=== PATIENT | male | born 1930 | race Caucasian/White ===

== ENCOUNTER 2017-10-28 23:15 | Inpatient (IN) | payer MEDICARE, OTHER ==
[~2017-10-28] VITALS: Ht 172.7 cm; Wt 81.8 kg
[~2017-10-28 23:15] MED LIST: ASPIR-LOW81 MG PO; BETA CAROTENE PO; FISH OIL1 IU PO; LIPITOR 10MG10 MG PO; LUETIN PO; TYLENOL 500MG500 MG PO; VITAMIN B 12 PO; VITAMIN C500 MG PO; VITAMIN D PO; VITAMIN E200 I1 PO
[2017-10-29 00:47] LABS: COLLECTION METHOD CLEAN CATCH
[2017-10-29 00:53] LABS: PH 5 (5-8); SQUAMOUS EPITHELIAL None Seen /hpf; URINE APPEARANCE Clear; URINE BACTERIA None Seen /hpf; URINE BILIRUBIN Negative (NEGATIVE); URINE BLOOD 2+ (NEGATIVE); URINE COLOR Yellow; URINE GLUCOSE Negative (NEGATIVE); URINE KETONE Negative (NEGATIVE); URINE LEUKOCYTE ESTERASE Negative (NEGATIVE); URINE NITRATE Negative (NEGATIVE); URINE PROTEIN(semi-quant) Negative (NEGATIVE); URINE RBC 0-2 /hpf; URINE UROBILINOGEN Negative (NEGATIVE)
[2017-10-29 01:50] LABS: HEMATOCRIT 41.9 % (42.0-52.0); HEMOGLOBIN 14.6 g/dl (13.5-18.0); MEAN CELL VOLUME 85 fl (80.0-100.0); MEAN CORPUSCULAR HEMOGLOBIN 30 pg (27.0-31.0); MEAN CORPUSCULAR HGB CONC 35 g/dl (33.0-37.0); PLATELET COUNT 204 K/mm3 (130-400); RED BLOOD COUNT 4.94 M/mm3 (4.20-5.60); REDCELL DISTRIBUTION WIDTH-CV 13.7 % (11.5-14.5)
[2017-10-29 02:09] LABS: ALANINE AMINOTRANSFERASE 27 U/L (21-72); ALBUMIN 3.7 gm/dL (3.5-5.0); ALKALINE PHOSPHATASE 97 U/L (50-136); ANION GAP 10 mmol/L (7-16); AST,SGOT 21 U/L (15-37); BILIRUBIN,TOTAL 0.5 mg/dL (0.0-1.0); BLOOD UREA NITROGEN 26 mg/dL (9-20); C-REACTIVE PROTEIN 4.1 mg/dL (0.0-0.9); CALCIUM 8.7 mg/dL (8.4-10.2); CARBON DIOXIDE 23 mmol/L (22-30); CHLORIDE 105 mmol/L (98-107); CREATININE, serum 1.71 mg/dL (0.66-1.25); GLUCOSE 88 mg/dL (74-106); POTASSIUM 4.1 mmol/L (3.4-5.0); SODIUM 138 mmol/L (137-145); TOTAL PROTEIN 6.5 gm/dL (6.4-8.2); URIC ACID 8.3 mg/dL (3.5-8.5)
[2017-10-29 02:11] LABS: BAND 5 % (0-10); BASOPHIL 1 % (0-2); EOSINOPHIL 2 % (0-4); LYMPHOCYTE 7 % (20.0-51.0); NEUTROPHILS 75 % (42.0-75.2)
[2017-10-29 02:12] LABS: PLATELET ESTIMATE NORMAL (NORMAL)
[2017-10-29 02:15] LABS: ERYTHROCYTE SEDIMENTATION RATE 6 mm/hr (0-30)
[2017-10-29 02:19] LABS: TROPONIN-I < 0.012 ng/mL (0.000-0.034)
[2017-10-29] MEDS ORDERED: PRAVACHOL 40MG40 MG PO (02:44)
[2017-10-29] MEDS ORDERED: NAMZARIC1 ECC PO (02:45)
[2017-10-29 07:40] VITALS: BP 119/84; PULSE 70; TEMP 98.1
[2017-10-29 11:04] VITALS: BP 105/76; PULSE 85; TEMP 98.4
[2017-10-29 16:44] VITALS: BP 125/69; PULSE 71; TEMP 98
[2017-10-29 19:28] VITALS: BP 107/53; PULSE 74; TEMP 99.6
[2017-10-30 00:07] VITALS: BP 151/66; PULSE 69; TEMP 99.1
[2017-10-30 04:31] VITALS: BP 113/53; PULSE 64; TEMP 97.8
[2017-10-30 06:34] LABS: BASO # 0.1 (0.0-0.2); BASO % 0.3 % (0.0-2.0); EOS # 0.2 (0.0-0.7); GRAN # 12.4 (1.4-6.5); GRAN % 80.4 % (42.2-75.2); LYMPH # 1.3 (1.2-3.4); LYMPH % 8.4 % (20.0-51.0); MEAN CELL VOLUME 86 fl (80.0-100.0); MEAN CORPUSCULAR HGB CONC 34 g/dl (33.0-37.0); MEAN PLATELET VOLUME 12.3 fl (7.4-10.4); MONO # 1.4 (0.1-0.6); MONO % 9.2 % (1.7-9.3); PLATELET COUNT 177 K/mm3 (130-400); RED BLOOD COUNT 4.13 M/mm3 (4.20-5.60); REDCELL DISTRIBUTION WIDTH-CV 13.7 % (11.5-14.5)
[2017-10-30 06:36] LABS: HEMATOCRIT 35.5 % (42.0-52.0); HEMOGLOBIN 12.2 g/dl (13.5-18.0); MEAN CORPUSCULAR HEMOGLOBIN 30 pg (27.0-31.0)
[2017-10-30 06:40] LABS: CALCIUM 7.7 mg/dL (8.4-10.2); CREATININE, serum 1.98 mg/dL (0.66-1.25)
[2017-10-30 07:58] VITALS: BP 117/55; PULSE 54; TEMP 98.3
[2017-10-30 11:53] VITALS: BP 119/63; PULSE 76; TEMP 98.1
[2017-10-30 15:18] LABS: COLLECTION METHOD CATHETER
[2017-10-30 15:27] LABS: PH 6 (5-8); SQUAMOUS EPITHELIAL None Seen /hpf; URINE APPEARANCE Hazy; URINE BACTERIA Rare /hpf; URINE BILIRUBIN Negative (NEGATIVE); URINE BLOOD 3+ (NEGATIVE); URINE COLOR Yellow; URINE GLUCOSE Negative (NEGATIVE); URINE KETONE Negative (NEGATIVE); URINE LEUKOCYTE ESTERASE Negative (NEGATIVE); URINE NITRATE Negative (NEGATIVE); URINE PROTEIN(semi-quant) 2+ (NEGATIVE); URINE RBC >50 /hpf
[2017-10-30 17:17] VITALS: BP 134/68; PULSE 70; TEMP 98.1
[2017-10-30 20:21] VITALS: BP 127/66; PULSE 70; TEMP 98.7
[2017-10-31] VITALS (7 sets, daily range): BP systolic 107–144; BP diastolic 52–89; PULSE 66–75; TEMP 97.7–99.9
[2017-10-31 08:45] LABS: BASO # 0.1 (0.0-0.2); BASO % 0.5 % (0.0-2.0); EOS # 0.3 (0.0-0.7); EOS % 2.6 % (0-4.0); GRAN # 9.4 (1.4-6.5); GRAN % 72.2 % (42.2-75.2); HEMOGLOBIN 12.1 g/dl (13.5-18.0); LYMPH # 1.7 (1.2-3.4); LYMPH % 13.4 % (20.0-51.0); MEAN CELL VOLUME 86 fl (80.0-100.0); MEAN CORPUSCULAR HEMOGLOBIN 29 pg (27.0-31.0); MEAN CORPUSCULAR HGB CONC 34 g/dl (33.0-37.0); MEAN PLATELET VOLUME 12.9 fl (7.4-10.4); MONO # 1.4 (0.1-0.6); MONO % 10.7 % (1.7-9.3); PLATELET COUNT 188 K/mm3 (130-400); RED BLOOD COUNT 4.12 M/mm3 (4.20-5.60); REDCELL DISTRIBUTION WIDTH-CV 13.9 % (11.5-14.5)
[2017-10-31 08:53] LABS: CALCIUM 8.1 mg/dL (8.4-10.2); CREATININE, serum 1.8 mg/dL (0.66-1.25); POTASSIUM 3.5 mmol/L (3.4-5.0)
[2017-10-31 08:56] LABS: HEMATOCRIT 35.5 % (42.0-52.0)
[2017-11-01 03:06] VITALS: BP 105/89; PULSE 71; TEMP 98.1
[2017-11-01 07:32] LABS: BASO # 0.1 (0.0-0.2); BASO % 0.5 % (0.0-2.0); EOS # 0.3 (0.0-0.7); EOS % 2.2 % (0-4.0); GRAN # 11.2 (1.4-6.5); GRAN % 75.6 % (42.2-75.2); HEMOGLOBIN 12.7 g/dl (13.5-18.0); LYMPH # 1.6 (1.2-3.4); LYMPH % 11.1 % (20.0-51.0); MEAN CELL VOLUME 85 fl (80.0-100.0); MEAN CORPUSCULAR HEMOGLOBIN 29 pg (27.0-31.0); MEAN CORPUSCULAR HGB CONC 34 g/dl (33.0-37.0); MEAN PLATELET VOLUME 12.5 fl (7.4-10.4); MONO # 1.5 (0.1-0.6); MONO % 9.9 % (1.7-9.3); PLATELET COUNT 201 K/mm3 (130-400); RED BLOOD COUNT 4.34 M/mm3 (4.20-5.60); REDCELL DISTRIBUTION WIDTH-CV 13.8 % (11.5-14.5)
[2017-11-01 07:44] LABS: CALCIUM 8.4 mg/dL (8.4-10.2); CREATININE, serum 1.7 mg/dL (0.66-1.25); POTASSIUM 3.6 mmol/L (3.4-5.0)
[2017-11-01 08:42] VITALS: BP 124/64; PULSE 77; TEMP 97.8
[2017-11-01] MEDS ORDERED: CEPHALEXIN500 M1 PO (08:50)
[2017-11-01] MEDS ORDERED: SEROQUEL 2525 MG/TAB PO (08:52)
[2017-11-01 11:50] VITALS: BP 137/71; PULSE 72; TEMP 98.5
[2017-11-01 12:42] VITALS: BP 137/71; PULSE 72; TEMP 98.5
== END 2017-11-01 15:06 | DRG 603 ==
LOC: COL.ER 23:15 → MEDICAL 10-29 03:18
PROVIDERS: Emergency Medicine; Nurse Practitioner; Physician Assistant
DX: L03.116 Cellulitis of left lower limb (principal); N17.9 Acute kidney failure, unspecified; Z85.46 Personal history of malignant neoplasm of prostate; F03.90 Unspecified dementia, unspecified severity, without behavioral disturbance, psychotic disturbance, mood disturbance, and anxiety; M19.072 Primary osteoarthritis, left ankle and foot; R33.9 Retention of urine, unspecified; R31.9 Hematuria, unspecified
CPT/HCPCS: 99223-AI; 99231-AI; 99232-AI; 99239; G0103; J0692; J1644; J2060; J2543; J3370; J7030; J7050

== ENCOUNTER → 2017-11-04 | Outpatient (REF) ==
[~2017-11-04] MED LIST changes: +CEPHALEXIN500 M1 PO; +NAMZARIC1 ECC PO; +PRAVACHOL 40MG40 MG PO; +SEROQUEL 2525 MG/TAB PO
[2017-11-04 12:34] LABS: BASO # 0.1 (0.0-0.2); BASO % 0.6 % (0.0-2.0); EOS # 0.3 (0.0-0.7); EOS % 2.5 % (0-4.0); GRAN % 76.8 % (42.2-75.2); HEMOGLOBIN 12.4 g/dl (13.5-18.0); LYMPH # 1.2 (1.2-3.4); LYMPH % 9.3 % (20.0-51.0); MEAN CELL VOLUME 85 fl (80.0-100.0); MEAN CORPUSCULAR HEMOGLOBIN 29 pg (27.0-31.0); MEAN CORPUSCULAR HGB CONC 34 g/dl (33.0-37.0); MEAN PLATELET VOLUME 12.6 fl (7.4-10.4); MONO # 1.3 (0.1-0.6); MONO % 9.8 % (1.7-9.3); PLATELET COUNT 246 K/mm3 (130-400); RED BLOOD COUNT 4.25 M/mm3 (4.20-5.60); REDCELL DISTRIBUTION WIDTH-CV 14.1 % (11.5-14.5)
[2017-11-04 12:40] LABS: HEMATOCRIT 36.3 % (42.0-52.0)
== END ==
LOC: ZCOL.LAB 12:23
PROVIDERS: Emergency Medicine
DX: M62.81 Muscle weakness (generalized) (principal)

== ENCOUNTER 2017-11-19 17:36 | Emergency (ER) | payer MEDICARE, OTHER ==
[~2017-11-19] VITALS: Ht 170.2 cm; Wt 81.8 kg
[2017-11-19 17:56] VITALS: BP 141/70; TEMP 97.9
[2017-11-19 19:07] LABS: BASO # 0.1 (0.0-0.2); BASO % 0.8 % (0.0-2.0); EOS # 0.3 (0.0-0.7); EOS % 2.5 % (0-4.0); GRAN # 9.9 (1.4-6.5); GRAN % 74.4 % (42.2-75.2); HEMATOCRIT 40.4 % (42.0-52.0); HEMOGLOBIN 13.8 g/dl (13.5-18.0); LYMPH # 1.6 (1.2-3.4); MEAN CELL VOLUME 85 fl (80.0-100.0); MEAN CORPUSCULAR HEMOGLOBIN 29 pg (27.0-31.0); MEAN CORPUSCULAR HGB CONC 34 g/dl (33.0-37.0); MEAN PLATELET VOLUME 11.8 fl (7.4-10.4); MONO # 1.3 (0.1-0.6); MONO % 9.5 % (1.7-9.3); PLATELET COUNT 289 K/mm3 (130-400); RED BLOOD COUNT 4.75 M/mm3 (4.20-5.60); REDCELL DISTRIBUTION WIDTH-CV 13.6 % (11.5-14.5)
[2017-11-19 19:19] LABS: ALBUMIN 3.6 gm/dL (3.5-5.0); BILIRUBIN,TOTAL 0.5 mg/dL (0.0-1.0); C-REACTIVE PROTEIN 3.8 mg/dL (0.0-0.9); CALCIUM 8.5 mg/dL (8.4-10.2); CREATININE, serum 1.83 mg/dL (0.66-1.25); POTASSIUM 4.1 mmol/L (3.4-5.0); TOTAL PROTEIN 6.4 gm/dL (6.4-8.2); URIC ACID 7.4 mg/dL (3.5-8.5)
[2017-11-19] MEDS ORDERED: CEPHALEXIN500 M1 PO (20:30)
[2017-11-19] MEDS ORDERED: DOXYCYCLINE 10100 MG PO (20:30)
[2017-11-19 20:55] VITALS: PULSE 72
== END 2017-11-19 20:55 | disposition home or self-care (01) ==
LOC: COL.ER 17:36
PROVIDERS: Emergency Medicine
DX: L03.115 Cellulitis of right lower limb (principal)